=== PATIENT | female | born 1995 | race Caucasian/White ===

== ENCOUNTER 2025-01-18 12:40 | Emergency (ER) | payer OTHER, SELFPAY ==
[2025-01-18 12:50] VITALS: BP 119/84
[2025-01-18 14:56] LABS: COVID-19 Antigen Negative (Negative)
--- NOTE | 2025-01-18 15:24 | ED.GENMED ---
History of Present Illness
General
Chief Complaint: Chest Pain
Source: patient and family
Time Seen by Provider: 01/18/25 13:30
History of Present Illness
History of Present Illness:
Note:
CHIEF COMPLAINT(S)
Cough, congestion and left-sided chest pain.
HISTORY OF PRESENT ILLNESS
The patient is a 29-year-old female who is currently and expressing concern about the well-being of her baby due to recent symptoms. She reports experiencing cramps starting Tuesday night, which she describes as 'really bad.' There was
also mention of pain radiating from her L shoulder to her chest, with increased severity on deep breaths. The patient notes a mild cough, congestion, and a sensation of ear pain and drainage, primarily in the left ear. She has been exposed to sick
contacts during , where multiple family members were ill with upper respiratory and sinus issues. Her primary care physician initially tested her for strep and prescribed amoxicillin, waiting for a culture that later returned negative.
The recommendation was to cease amoxicillin use, as the diagnosis suggested a viral infection. The patient has had a previous miscarriage at a couple of weeks gestation, which increases her anxiety regarding the current symptoms. She denies any
vaginal bleeding but reports mild continued cramping. She expressed concern regarding the heart, but an electrocardiogram was noted to be normal.
PAST MEDICAL AND SURGICAL HISTORY
The patient has a history of one previous that resulted in a miscarriage at a few weeks of gestation.
SOCIAL DETERMINANTS AFFECTING HEALTH
The patient reports exposure to multiple family members with respiratory illnesses at a recent family gathering, contributing to the likelihood of viral infection.
REVIEW OF SYSTEMS
- Constitutional: Concerns about the health of the baby due to -related symptoms.
- Respiratory: Mild cough, no blood-tinged sputum, chest pain exacerbated with deep breathing.
- Cardiovascular: Chest pain radiating to the shoulder, described as severe with deep breaths. Previous electrocardiogram was normal.
- Ears, Nose, and Throat: Ear pain with noted drainage particularly on the left side, mild congestion, and a sore throat without pus.
- Obstetrics/Gynecological: Currently , previous miscarriage at a couple of weeks gestation, mild cramping, no vaginal bleeding.
PHYSICAL EXAM
General: Alert, no acute distress.
Skin: Warm, dry.
Head: Normocephalic, atraumatic.
Neck: Supple, trachea midline.
Eye, Ears, Nose, Mouth, and Throat: Oral mucosa moist. Mild redness noted in throat, no pus. Slight middle ear effusion with no infection or significant swelling.
Cardiovascular: Normal peripheral perfusion, no edema.
Respiratory: Respirations are non-labored; lung sounds clear upon auscultation.
Gastrointestinal: Abdomen nondistended.
Back: Normal range of motion, Normal alignment.
Musculoskeletal: Normal range of motion, normal strength.
Neurological: Alert and oriented to person, place, time, and situation, no focal neurological deficit observed.
Psychiatric: Cooperative, appropriate mood & affect.
PLAN
- Perform bedside ultrasound to check well-being and reassure the patient regarding the babys condition.
- Conduct swabs for influenza and COVID-19 to rule out viral infections.
- Consider a chest X-ray to exclude possibilities such as pneumonia or pneumothorax if symptoms persist or worsen, with appropriate shielding to minimize radiation exposure.
- Monitor symptoms and provide reassurance about managing viral illness symptoms unless complications arise.
DIFFERENTIAL DIAGNOSIS
The Differential Diagnosis includes, in no particular order and is not limited to:
1. Viral upper respiratory infection
2. Stress-related symptoms
3. Influenza
4. Strep throat (less likely due to negative culture)
5. Bacterial sinusitis
6. Anxiety-related somatic symptoms
7. Non-infectious causes of ear pain (e.g., Eustachian tube dysfunction)
8. Musculoskeletal pain related to coughing or straining
9. Pneumonia
10. Pleuritic chest pain
EKG
My independent EKG interpretation is:
- Time of EKG: Not specified
- Rhythm: Normal sinus rhythm
- Heart Rate: 97 beats per minute
- [place]: Normal
- Notable Intervals: Not specified
- Abnormalities Observed: No acute ST segment changes
Disposition:
SUMMARY OF ENCOUNTER
The patient is a 29-year-old female who is currently , presenting with cough, sneezing, congestion, and atypical sharp left chest pain. She was previously prescribed amoxicillin, but a strep test returned negative, and her doctor advised
discontinuing the medication. The patient was exposed to sick contacts recently. She expressed concern for her baby but denied any vaginal bleeding. There was intermittent cramping reported. Upon reassessment, the patient felt well. An
electrocardiogram showed no abnormalities, and a chest x-ray was negative for pneumonia or pneumothorax. Bedside ultrasound demonstrated normal movement and heart rate.
ASSESSMENT
Suspected viral upper respiratory infection in a patient with normal findings. No evidence of pneumonia, pneumothorax, or pulmonary embolism.
PLAN
Recommend saline nasal sprays and humidified air for symptomatic relief. Continue outpatient management. Suspect a viral source of respiratory symptoms. Reassure the patient regarding the normal health.
INDEPENDENT REVIEW OF LABS AND INTERPRETATION OF TESTS
- My independent review of the electrocardiogram is normal, showing no abnormalities.
- My independent chest x-ray interpretation shows no evidence of pneumonia or pneumothorax.
- My independent interpretation of the bedside ultrasound indicates normal movement and heart rate.
PATIENT EDUCATION AND COUNSELING
The patient was advised on using saline nasal sprays and humidified air to alleviate symptoms. She was reassured about the babys normal condition based on ultrasound findings.
FOLLOW-UP INSTRUCTIONS
Please schedule a follow-up visit with your washery engineer to monitor the and manage any ongoing respiratory symptoms.
MEDICATION RECONCILIATION
The patient was previously prescribed amoxicillin, which was discontinued after the strep test returned negative.
MEDICAL DECISION MAKING
- Number and Complexity of Problems Addressed: Chronic conditions affecting care include suspected viral upper respiratory infection exacerbated by -related anxiety. Differential diagnosis considered includes viral upper respiratory
infection, stress-related symptoms, influenza, bacterial sinusitis, and non-infectious causes of chest pain.
- Data:
Category 1:
- My independent interpretation of the electrocardiogram showed normal sinus rhythm.
- My independent interpretation of the chest x-ray was negative for pneumonia or pneumothorax.
Category 2:
- Clinical information was obtained from the patients report and independent reading of the tests.
Category 3:
- Discussion of management with the patients primary care physician regarding stopping amoxicillin after negative strep culture.
- Risk: Consideration of Admission/Observation: Escalation of care including admission/observation was considered given the complexity and risk of the patients presenting complaint, exam findings, and their underlying comorbidities. However,
ultimately, I feel the patient is safe for outpatient management with close follow-up. Reasoning: Work-up reassuring; does not reveal any acute life/organ-threatening processes; patients symptoms well-controlled upon reevaluation; reexamination is
reassuring; vitals are stable; patient agreeable with discharge; reliable for follow-up.
DIAGNOSIS
- Viral upper respiratory infection (J06.9)
- -related concerns (O26.899)
Past History
Past History
ED Past Medical History: None
ED Past Surgical History: None
Social History
Tobacco: Non-smoker
Drug: None
Family History
Family History: Negative Diabetes, Hypertension or CAD
Phy Exam
Physical Exam
Physical Exam:
.
Scores
Heart Score for Chest Pain Patients
STEMI patient?: Not applicable
Course
Orders/Labs/Results
Orders:
Orders
01/18/25 12:40
EKG [Electrocardiogram (*1)] Urgent
Reason for Study: Chest Pain
01/18/25 12:41
EKG- Treatment ONCE
01/18/25 14:11
CR Chest - 2 Views Urgent
Comment: pt is 10 weeks
Reason For Exam: cough, L CP
01/18/25 14:16
COVID-19 Antigen Urgent
Source: Nasal Swab
Influenza A+B Rapid Molecular Urgent
CR Source: Nasal Swab
Specimen Description:
Vital Signs
Initial and Last Documented VS:
Initial Vital Signs
Temp Pulse Resp BP Pulse Ox
98.7 F 105 20 119/84 99
01/18/25 12:50 01/18/25 12:50 01/18/25 12:50 01/18/25 12:50 01/18/25 12:50
Last Documented Vital Signs
Temp Pulse Resp BP Pulse Ox
98.7 F 85 16 127/84 99
01/18/25 12:50 01/18/25 15:38 01/18/25 15:38 01/18/25 15:38 01/18/25 15:27
*Pulse Oximetry
SaO2: 99
Oxygen Mode of Delivery: Room air
Patient hypoxic: no
*Critical Care Note
Total Time (30-74mins, 75-104mins- exclusive of procedures): Not Applicable
ED Attending Note
-
Portions of this chart may have been created with voice recognition software.� Occasional wrong word or��sound alike� substitutions may have occurred due to the inherent limitations of voice recognition software.
Discharge Plan
Departure
Patient Disposition: Home (Routine Discharge)
Date of Disposition: 01/18/25
Time of Disposition: 15:24
Patient with high blood pressure during this ER visit?: No
Discharge Problem:
Upper respiratory infection, Atypical chest pain, Intrauterine
Instructions: Chest pain, Upper Respiratory Infection - Adult
Prescriptions:
No Action
amoxicillin 500 MG capsule
500 mg PO Q8H Qty: 30 0RF
carbamide peroxide [Ear Drops (carbamide peroxide)] 1 DROP drops
5 drp otic (ear) BID Qty: 1 0RF
Referrals:
Ki Celeste DO [Family Provider, Family Practice]
Activity Restrictions/Additional Instructions:
Please drink plenty of fluids. Use saline nasal sprays as discussed for nasal clearing. Use humidifier at night or open the window a small amount to allow moisturized air in the room. Return immediately for difficulty breathing, coughing up
blood, shortness of breath, worsening symptoms or any other concerns. Please follow-up with your OB in the next 3 to 5 days
Interventions
Interventions:
*Risk Screen - Suicide Last Done: 01/18/25 12:50
*General Assessment Last Done: 01/18/25 13:37
*Neglect/Abuse Screening Last Done: 01/18/25 12:50
*ED COVID-19 Vaccine History Last Done: 01/18/25 13:45
*ED Influenza Vaccine History Last Done: 01/18/25 13:45
[facility] Fall Risk Assessment Tool Last Done: 01/18/25 13:37
*Nursing Disposition Last Done: 01/18/25 15:55
ED- Cardiac Assessment Last Done: 01/18/25 13:37
Discharge Date and Time
Discharge Date/Time: 01/18/25 15:55
Print Language: CENTRAL AFRICAN
[2025-01-18 15:38] VITALS: BP 127/84
== END 2025-01-18 15:55 | disposition home or self-care (01) ==
LOC: EMR 12:40
PROVIDERS: EMERGENCY PHYSICIAN Emergency Medicine; FAMILY PHYSICIAN Family Medicine
DX: O99.519 Diseases of the respiratory system complicating pregnancy, unspecified trimester (principal); J06.9 Acute upper respiratory infection, unspecified; O99.891 Other specified diseases and conditions complicating pregnancy; R07.89 Other chest pain; Z3A.00 Weeks of gestation of pregnancy not specified; Z87.59 Personal history of other complications of pregnancy, childbirth and the puerperium
CPT/HCPCS: 99283; 71046; 87502; 87811; 93005

== ENCOUNTER → 2025-02-05 10:41 | Outpatient (REF) | payer OTHER, SELFPAY | LOC: PNTC 10:41 | PROVIDERS: ATTENDING PHYSICIAN Obstetrics & Gynecology | DX: O99.210 Obesity complicating pregnancy, unspecified trimester (principal) | CPT/HCPCS: 76801; 76813 ==